=== PATIENT | female | born 1950 | race Caucasian/White ===

== ENCOUNTER → 2016-11-04 | Outpatient (CLI) | payer MEDICARE, OTHER ==
[~2016-11-04] MED LIST: ALL DAY ALLERGY10 M2 PO; ASPIR 8181 MG PO; COMBIVENT0.074 GM/I INH; CRESTOR40 MG PO; DULERA 200 MCG8.8 GM INH; FLEXERIL 10 MG10 MG PO; FLOVENT DISKUS50 MCG INH; GLUCOPHAGE1000 MG PO; HUMALOG100 UNIT/1 SQ; JANUVIA100 MG PO; LASIX20 MG PO; LISINOPRIL10 MG PO; METOPROLOL SUCC25 MG PO; MIRAPEX0.25 MG PO; NEURONTIN 400400 MG PO; NITROSTAT0.4 MG SL; OXYCODONE HCL10 MG PO; PLAVIX 75 MG TA75 MG PO; PROTONIX40 MG PO; PROVENTIL HFA 61 INH INH; RANEXA1000 MG PO; SPIRIVA HANDIH18 MCG INH; VITAMIN B-1000 MCG/M IM; VITAMIN D50000 UNIT PO; XOLAIR 150150 MG/VIA INJ; ZETIA10 MG PO
== END ==
LOC: HEART 5 07:58
DX: I25.10 Atherosclerotic heart disease of native coronary artery without angina pectoris (principal); R07.9 Chest pain, unspecified
CPT/HCPCS: 93306

== ENCOUNTER → 2016-11-08 | Outpatient (CLI) | payer MEDICARE, OTHER | LOC: HEART 5 07:53 | DX: I25.10 Atherosclerotic heart disease of native coronary artery without angina pectoris (principal); R07.9 Chest pain, unspecified | CPT/HCPCS: 78452; A9502; J2785 ==

== ENCOUNTER → 2017-01-27 | Outpatient (CLI) | payer MEDICARE, OTHER | LOC: US 08:54 | DX: D50.9 Iron deficiency anemia, unspecified (principal); K90.9 Intestinal malabsorption, unspecified; N27.0 Small kidney, unilateral | CPT/HCPCS: 71020; 76700 ==

== ENCOUNTER → 2020-09-07 | Outpatient (CLI) | payer OTHER ==
[~2020-09-07] MED LIST changes: +ALBUTEROL2.5 MG/3 M INH; +COMBIVENT RESPIM4 GM INH; +DOXEPIN HCL10 MG PO; +FLONASE 0.05% N16 GM; +FLUOXETINE HCL40 MG PO; +IMDUR ER TAB 3030 MG PO; +JARDIANCE25 MG PO; +LANTUS INS100 UTS/M1 SQ; +LOPRESSOR 25 MG25 MG PO; -METOPROLOL SUCC25 MG PO; +NOVOLOG 10100 UNITS1 SQ; +REQUIP1 MG PO; +ROPINIROLE HCL1 MG PO; +SILENOR6 MG PO; +VITAMIN D3125 MC1 PO; +XARELTO20 MG PO; +ZESTRIL/PRINIVI10 MG PO; +ZYFLO CR600 MG PO; +ZYRTEC10 M3 PO
== END ==
LOC: RT 11:26
DX: R00.9 Unspecified abnormalities of heart beat (principal); I45.2 Bifascicular block; R93.41 Abnormal radiologic findings on diagnostic imaging of renal pelvis, ureter, or bladder; I49.1 Atrial premature depolarization
CPT/HCPCS: 93005

== ENCOUNTER → 2020-09-30 | Outpatient (CLI) | payer OTHER | LOC: HEART 5 09:54 | DX: R00.2 Palpitations (principal) ==

== ENCOUNTER → 2021-01-08 | Outpatient (CLI) | payer MEDICARE, OTHER | LOC: EXRD 11:43 | DX: M25.551 Pain in right hip (principal); M53.3 Sacrococcygeal disorders, not elsewhere classified; W19.XXXA Unspecified fall, initial encounter; K59.00 Constipation, unspecified; I70.90 Unspecified atherosclerosis | CPT/HCPCS: 72220; 73502 ==

== ENCOUNTER → 2021-02-26 | Outpatient (CLI) | payer MEDICARE, OTHER | LOC: EXRD 09:26 | DX: R50.9 Fever, unspecified (principal); J20.9 Acute bronchitis, unspecified | CPT/HCPCS: 71046 ==